=== PATIENT | male | born 1970 | race Caucasian/White ===

== ENCOUNTER 2021-04-10 18:00 | Emergency (ER) | payer OTHER, SELFPAY ==
[2021-04-10 18:30] VITALS: BP 133/81; PULSE 65; RESP 15; TEMP 36.5; O2SAT 94; BMI 38.7
[2021-04-10] MEDS: predniSONE 20 mg Tablet PO (19:35)
--- NOTE | 2021-04-10 19:38 | PC.NURSE ---
Patient complaining of rib pain with deep inspiration. Dennis completed a full assessment, ordered prednison, administered per physicians orders. Patient discharged ambulatory in stable condition.
--- NOTE | 2021-04-10 20:16 | W.ED.GENADLT ---
HPI - General Adult General: Chief complaint: General Medical Stated complaint: rib, arm, back pain Time Seen by Provider: 04/10/21 19:16 History of Present Illness: HPI narrative: Patient states he has pain left rib cage radiates more from the left side of his back with movement while at work today. This also occurred yesterday. Only hurts when he moves he says it feels like a sharp pain she is he puts his arm down it goes away. MD complaint: Musculoskeletal pain Onset (ago): day(s) Location: chest Radiation: non-radiation Severity: mild Quality: sharp Pain Consistency: colicky Relieving factors: immobilization Exacerbating factors: movement Associated symptoms: Reports no associated symptoms; Deny chest pain, dyspnea, headache(s), nausea, rash or vomiting Treatments prior to arrival: none Review of Systems Const: Denies: fever(s), chills or body aches Eyes: Denies: change in vision or blurry vision ENMT: Denies: throat pain or nasal congestion Card: Denies: chest pain or dyspnea on exertion Resp: Denies: dyspnea, productive cough or non-productive cough GI: Denies: abdominal pain, nausea or vomiting : Denies: difficulty urinating Musc: Reports: back pain (Radiates to the left side chest with movement of left arm); Denies: extremity pain Skin/Breast: Denies: rash Neuro: Denies: headache(s) Psych: Denies: anxiety or depression Kp/Lymph: Denies: easy bruising PFSH ED PFSH: Family History (Updated 11/09/19 @ 13:37 by Nandini Cisse RN) Other Cancer Diabetes Social History (Updated 04/10/21 @ 18:35 by Aman Mathews RN) Smoking and tobacco status: never smoked Alcohol intake: never Substance/Drug Use: never Physical Exam Const: COMMON NORMALS: no acute distress, average body habitus and patient oriented x3 HENMT: COMMON NORMALS: normocephalic HEAD & SCALP: normal to inspection and normocephalic FACE & SINUS: normal facial exam Eye: COMMON NORMALS: conjunctivae normal GENERAL EYE: appearance normal, both eyes and all related structures CONJUNCTIVA: Yes conjunctivae normal Neck/C-Spine: COMMON NORMALS: no JVD Chest: COMMONS NORMALS: normal inspection of the chest Resp: COMMON NORMALS: normal respiratory effort and clear to auscultation bilaterally AUSCULTATION: clear to auscultation bilaterally Cardio: COMMON NORMALS: no JVD, regular rate and regular rhythm RATE: regular rate RHYTHM: regular rhythm GI: COMMON NORMALS: Normal to inspection, nondistended, normoactive bowel sounds present Extremity: COMMON NORMALS: normal to inspection and full ROM Neuro: COMMON NORMALS: patient oriented x3 Course Vital Signs: Vital signs: Vital Signs Temperature 97.7 F 04/10/21 18:30 Pulse Rate 65 04/10/21 18:30 Respiratory Rate 15 04/10/21 18:30 Blood Pressure 133/81 04/10/21 18:30 Pulse Oximetry 94 04/10/21 18:30 MDM - General Adult MDM Narrative: Medical decision making narrative: Patient's arm is not hurting. I cannot reduce pain with the range of motion. Patient had no pain since he has been here. He said his only occurs at work when he is moved his left arm and happened just a few times. Says he has a lot of anxiety going on his life what happened but his mother in the detention. Denies any shortness breasts chest pressure heaviness or other related type of cardiac symptoms. Discharge Plan Discharge Patient Disposition: Home Clinical Impression: Rib pain on left side Condition: Stable Prescriptions: New prednisone 20 mg tablet 20 mg PO DAILY Qty: 7 RF: 0 No Action metoprolol succinate 25 mg tablet extended release 24 hr 25 mg PO DAILY Qty: 30 RF: 0 Discharge Orders: Discharge ED (Routine); Ordered 04/10/21 Ordered By: Dennis Olivas Referrals: Manuel Montero MD [Primary Care Provider] - Discharge Diet: Usual diet Discharge Activity: Increase activity as tolerated Activity Restrictions/Additional Instructions: Keep appointments as scheduled. Follow-up your family medical provider here in a week or 2 to make sure medication has been helping. Seek out chiropractic adjustment if you think that will help. Continue taking ktps-eyb-jpateyo medications as needed. Can apply ice to upper thoracic spine alternating with moist heat to see if that helps out. Coding Level of Care Code ED Flat Folding Machine Operator for Addis Fwd Exam Comprehensive
== END 2021-04-10 19:39 | disposition home or self-care (01) ==
PROVIDERS: Emergency Provider Nurse Practitioner Family; PCP Family Medicine
DX: R07.81 Pleurodynia (principal)
CPT/HCPCS: 99282; J7512

== ENCOUNTER 2022-03-17 06:44 | Emergency (ER) | payer OTHER, SELFPAY ==
[2022-03-17 06:56] VITALS: BP 137/90; PULSE 55; RESP 18; TEMP 36.7; O2SAT 96; BMI 41.5
--- NOTE | 2022-03-17 07:11 | ECG_ITS ---
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 Measurements Intervals [place] Rate: 59 P: 41 DE: 163 QRS: 15 QRSD: 87 T: 30 QT: 394 QTc: 393 Interpretive Statements SINUS BRADYCARDIA No previous ECG available for comparison Electronically Signed On 03-17-2022 17:37:34 CDT by Kamla Escalera M.D. [id number]
--- NOTE | 2022-03-17 07:11 | XRR_ITS ---
PROCEDURE INFORMATION: Exam: XR Chest Exam date and time: 03/17/2022 7:24 AM Age: 51 years old Clinical indication: Angina. Chest pain off and on for 2 days. Dyspnea. TECHNIQUE: Imaging protocol: XR of the chest. Views: 1 view. COMPARISON: CR XR chest 2V* [id number] 10/18/2021 10:58 AM FINDINGS: Lungs: No pulmonary consolidation. Pleural spaces: No pleural effusion. No pneumothorax. Heart/Mediastinum: The cardiac silhouette is unchanged. No gross evidence of pneumomediastinum. Diaphragm: Mild elevation of the right hemidiaphragm. Bones/joints: No gross fracture. XR/XR chest 1V portable [id number] IMPRESSION: No acute cardiopulmonary abnormality identified.
--- NOTE | 2022-03-17 07:14 | ED_ITS ---
HPI - Chest Pain General: Chief Complaint: Chest Pain Stated Complaint: Chest Pains Time Seen by Provider: 03/17/22 06:49 Source: patient Mode of arrival: ambulatory Limitations: no limitations History of Present Illness: 51-year-old male who presents emergency room with complaints of left-sided chest discomfort. He Stempler dentally had this for nearly 3 years,difficult for him to give us an exact timeframe but he says he seen Dr. Chong for it and there is a note from May 02, 2021 at that time and patient had already had a stress test the date on that was May 20, 2018. He states he will get brief episodes of chest pain the last 2 to 10 seconds be very sharp or sometimes goes into his back. Pain is better if he pushes on the anterior chest wall. Previous stress test from 2017 showed artifact but no evidence of significant ischemia. Patient states he will get this at various times sometimes at rest today he got while he was on the toilet at home. MD complaint: chest pain Onset (ago): year(s) (~3) Timing of current episode: episodic Prior episodes: Yes Onset: during rest Pain location: left chest Pain radiation: back Severity: mild Quality: sharp Relieving factors: other (Palpation) Exacerbating factors: nothing Associated symptoms: Deny abdominal pain, diaphoresis, dyspnea, fever(s), leg edema, nausea, palpitations, sense of impending doom, syncope or vomiting Treatment prior to arrival: none Review of Systems Const: Denies: fever(s), chills, body aches, change in appetite or diaphoresis ENMT: Denies: throat pain, ear or mastoid pain, nasal discharge or nasal congestion Card: Reports: chest pain; Denies: palpitations, irregular heart rhythm, edema or syncope Resp: Denies: dyspnea, productive cough, non-productive cough or wheezing GI: Denies: abdominal pain, nausea or vomiting : Denies: flank pain, difficulty urinating, dysuria, urinary frequency or urinary urgency Musc: Reports: back pain (Associated with chest discomfort); Denies: neck pain Skin/Breast: Denies: rash or pruritus [facility] ED PFSH: Medical History Chest pain Palpitations Family History Other Cancer Diabetes Social History Alcohol intake: never Physical Exam Const: COMMON NORMALS: no acute distress GENERAL APPEARANCE: cooperative and comfortable ORIENTATION/CONSCIOUSNESS: Yes awake, Yes oriented to person, Yes oriented to place and Yes oriented to time HENMT: COMMON NORMALS: normocephalic and atraumatic HEAD & SCALP: normocephalic and atraumatic Neck/C-Spine: COMMON NORMALS: no JVD Resp: COMMON NORMALS: normal respiratory effort, No retractions, No use of accessory muscles and clear to auscultation bilaterally AUSCULTATION: clear to auscultation bilaterally Cardio: COMMON NORMALS: no JVD, regular rate, regular rhythm and No murmurs present (Cardio) RATE: regular rate RHYTHM: regular rhythm GI: COMMON NORMALS: Soft to palpation and No hepatosplenomegaly present AUSCULTATION: Yes normoactive bowel sounds PALPATION: Yes Soft to palpation, No Tenderness to palpation present (GI), No Guarding due to palpation present (GI) and Yes No hepatosplenomegaly present Extremity: COMMON NORMALS: normal to inspection, capillary refill normal, no clubbing, cyanosis or edema, no calf tenderness and no pedal edema Neuro: SENSORIUM/ORIENTATION: Yes oriented to person, Yes oriented to place and Yes oriented to time Skin: COMMON NORMALS: no rashes or lesions noted GENERAL SKIN EXAM: no rashes or lesions noted Course Vital Signs: Vital signs: Vital Signs Temperature 98.0 F 03/17/22 06:56 Pulse Rate 52 L 03/17/22 11:47 Respiratory Rate 13 03/17/22 09:11 Blood Pressure 145/59 03/17/22 11:47 Pulse Oximetry 95 03/17/22 11:47 MDM - Chest Pain Medical Decision Making Serial enzymes negative. EKG does not show any acute changes. Will discharge patient home set up for outpatient stress testing follow-up as needed. Medical Records I reviewed the patient's medical records. Lab Data I reviewed the patient's lab results. : 03/17/22 07:34 03/17/22 07:34 Radiology Impressions Chest X-Ray 03/17/22 07:11 IMPRESSION: No acute cardiopulmonary abnormality identified. Laboratory Results WBC 9.6 10^3/uL (4.0-10.0) 03/17/22 07:34 RBC 5.10 10^6/uL (4.1-5.3) 03/17/22 07:34 Hgb 16.7 g/dL (11.7-16.6) H 03/17/22 07:34 Hct 47.7 % (42.0-52.0) 03/17/22 07:34 MCV 93.5 fl (80-94) 03/17/22 07:34 MCH 32.7 pg (28.0-34.0) 03/17/22 07:34 MCHC 35.0 g/dL (30.0-36.0) 03/17/22 07:34 RDW 12.6 % (12.1-15.1) 03/17/22 07:34 Plt Count 259 10^3/cmm (130-400) 03/17/22 07:34 MPV 9.6 fL (7.4-10.4) 03/17/22 07:34 Neut % (Auto) 55.8 % 03/17/22 07:34 Lymph % (Auto) 32.6 % 03/17/22 07:34 [place] % (Auto) 8.6 % 03/17/22 07:34 Eos % (Auto) 1.6 % 03/17/22 07:34 Baso % (Auto) 0.8 % 03/17/22 07:34 Neut # (Auto) 5.35 10^3/uL (1.8-7.7) 03/17/22 07:34 Lymph # (Auto) 3.1 10^3/uL (0.8-4.8) 03/17/22 07:34 [place] # (Auto) 0.8 10^3/uL (0.2-0.9) 03/17/22 07:34 Eos # (Auto) 0.2 10^3/uL (0.0-0.8) 03/17/22 07:34 Baso # (Auto) 0.1 10^3/uL (0.0-0.1) 03/17/22 07:34 Nucleated RBC % (auto) 0 % 03/17/22 07:34 Nucleated RBCs # 0.0 /100WBC 03/17/22 07:34 Sodium 140 mmol/L (136-145) 03/17/22 07:34 Potassium 3.7 mmol/L (3.5-5.1) 03/17/22 07:34 Chloride 105 mmol/L (98-107) 03/17/22 07:34 Carbon Dioxide 22 mmol/L (22-29) 03/17/22 07:34 Anion Gap 16.7 (5-19) 03/17/22 07:34 BUN 16 mg/dL (6-20) 03/17/22 07:34 Creatinine 0.9 mg/dL (0.7-1.2) 03/17/22 07:34 GFR Calculation 89.7 mL/min (90-130) L 03/17/22 07:34 Glucose 98 mg/dL (65-115) 03/17/22 07:34 Calculated Osmolality 291 mOsm/kg (285-295) 03/17/22 07:34 Calcium 9.1 mg/dL (8.5-10.5) 03/17/22 07:34 Total Bilirubin 0.4 mg/dL (0.15-1.2) 03/17/22 07:34 AST 20 U/L (0-40) 03/17/22 07:34 ALT 38 U/L (0-41) 03/17/22 07:34 Alkaline Phosphatase 64 IU/L (40-130) 03/17/22 07:34 Troponin T Baseline 7 ng/L (0-15) 03/17/22 07:34 Troponin T 120 Minute 7.75 ng/L (0-15) 03/17/22 09:36 Delta Troponin T Not Reportable 03/17/22 09:36 Total Protein 7.1 g/dL (6.6-8.7) 03/17/22 07:34 Albumin 4.2 g/dL (3.5-5.2) 03/17/22 07:34 Globulin 2.9 g/dL (1.3-4.6) 03/17/22 07:34 Discharge Plan Discharge Patient Disposition: Home Clinical Impression: Atypical chest pain Condition: Stable Prescriptions: No Action magnesium oxide 400 mg magnesium capsule 400 mg PO DAILY PRN (Reason: muscle cramps) 0RF Otc Sinus Tab From [facility] 1 tab PO DAILY 0RF metoprolol succinate 25 mg tablet extended release 24 hr 25 mg PO QAM 0RF albuterol sulfate 90 mcg/actuation HFA aerosol inhaler 2 puff INHALATION QID PRN (Reason: Shortness Of Breath) 0RF Discharge Orders: Discharge ED (Routine); Ordered 03/17/22 Ordered By: Mathew Quinn Referrals: Manuel Montero MD [Primary Care Provider] - Discharge Diet: Usual diet Patient Instructions: Opioid Safety Activity Restrictions/Additional Instructions: Case management will call to set up a Lexiscan sestamibi stress test. Coding Level of Care Code ED Solaris Administrator for Chg Fwd Exam Comprehensive
[2022-03-17 07:36] VITALS: BP 137/90; PULSE 55; RESP 16; O2SAT 96
[2022-03-17 07:46] LABS: Basophils # 0.1 10^3/uL (0.0-0.1); Basophils % 0.8 %; Eosinophils # 0.2 10^3/uL (0.0-0.8); Eosinophils % 1.6 %; Hematocrit 47.7 % (42.0-52.0); Hemoglobin 16.7 g/dL (11.7-16.6); Lymphocytes # 3.1 10^3/uL (0.8-4.8); Lymphocytes % 32.6 %; Mean Corpuscular Hemoglobin 32.7 pg (28.0-34.0); Mean Corpuscular Volume 93.5 fl (80-94); Mean Platelet Volume 9.6 fL (7.4-10.4); Monocytes # 0.8 10^3/uL (0.2-0.9); Monocytes % 8.6 %; Neutrophils # 5.35 10^3/uL (1.8-7.7); Neutrophils % 55.8 %; Nucleated Red Blood Cells % 0 %; Platelet Count 259 10^3/cmm (130-400); Red Cell Distribution Width 12.6 % (12.1-15.1); White Blood Count 9.6 10^3/uL (4.0-10.0)
[2022-03-17 08:05] LABS: Troponin(5th) Baseline 7 ng/L (0-15)
[2022-03-17 08:07] LABS: Alanine Aminotransferase 38 U/L (0-41); Albumin Level 4.2 g/dL (3.5-5.2); Alkaline Phosphatase 64 IU/L (40-130); Anion Gap 16.7 (5-19); Aspartate Amino Transferase 20 U/L (0-40); Blood Urea Nitrogen 16 mg/dL (6-20); Calcium 9.1 mg/dL (8.5-10.5); Carbon Dioxide 22 mmol/L (22-29); Chloride 105 mmol/L (98-107); Globulin 2.9 g/dL (1.3-4.6); Glomerular Filtration Rate 89.7 mL/min (90-130); Glucose 98 mg/dL (65-115); Osmolality Calculated 291 mOsm/kg (285-295); Potassium 3.7 mmol/L (3.5-5.1); Sodium 140 mmol/L (136-145); Total Bilirubin 0.4 mg/dL (0.15-1.2); Total Protein 7.1 g/dL (6.6-8.7)
[2022-03-17 09:11] VITALS: BP 145/59; PULSE 52; RESP 13; O2SAT 92
--- NOTE | 2022-03-17 09:11 | ECG_ITS ---
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 Measurements Intervals [place] Rate: 47 P: 37 OR: 148 QRS: 25 QRSD: 91 T: 35 QT: 430 QTc: 383 Interpretive Statements SINUS BRADYCARDIA Compared to ECG 03/17/2022 06:52:14 No significant changes Electronically Signed On 03-17-2022 17:41:31 CDT by Kamla Escalera M.D. [id number]
[2022-03-17 09:33] VITALS: BP 145/59; PULSE 52; O2SAT 95
[2022-03-17 10:28] LABS: Troponin 5 2HR 7.75 ng/L (0-15)
[2022-03-17 11:47] VITALS: BP 145/59; PULSE 52; O2SAT 95
--- NOTE | 2022-03-24 13:50 | DCPLANNER ---
Addendum entered by Jaquelin Holder 07/18/22 14:10: Patient had a stress test scheduled - patient did attend appointment. Original Note: quality systems manager had message to schedule an outpatient stress test for patient. quality systems manager faxed signed order to centralized scheduling, who will call patient with appointment information.
== END 2022-03-17 11:49 | disposition home or self-care (01) ==
PROVIDERS: Emergency Provider Family Medicine; PCP Family Medicine
DX: R07.89 Other chest pain (principal)
CPT/HCPCS: 71045; 80053; 84484; 85025; 93005; 99284

== ENCOUNTER 2022-05-16 11:41 | Outpatient (CLI) | payer OTHER, SELFPAY ==
[2022-05-16 12:22] VITALS: BMI 44.1
--- NOTE | 2022-05-16 12:35 | ECG_ITS ---
[facility] Test Date: 2022-05-16 Pat Name: Brigido Johns Department: Room: Gender: Male Respite Care Provider: Jill Casas : 1970 Requested By: Mathew Baldwin Order Number: [id number] Ayala MD: Luis Santos M.D. Interpretive Statements NAME OF STUDY: TREADMILL STRESS TEST INDICATION: [Atypical Chest Pain, ] EXERCISE DATA: The patient was exercised by Tin protocol. Baseline heart rate was 69 beats per minute. Baseline blood pressure was 143/104 millimeters of mercury. Target heart rate was 144 beats per minute. Maximum heart rate achieved was 169, which was 117% of the target heart rate. Maximum blood pressure was 190/99 millimeters of mercury. Total exercise time was 6 minutes 42 seconds. Maximum METs achieved was 10.2. The reason for ending the test was completion of protocol. The patient complained of chest pain during the stress test, which then resolved at the end of the test. ELECTROCARDIOGRAM: BASELINE: Showed sinus rhythm, normal axis, no significant ST-T changes at the baseline noted. [] EXERCISE: At the peak exercise level, [] No significant ST-T changes suggestive of ischemia noted. [] RECOVERY: During the recovery period, heart rate dropped appropriately. No significant ST-T changes in the recovery suggestive of ischemia noted. [] CONCLUSION: 1. Exercise capacity good 2. Heart rate response was appropriate 3. Blood pressure response was appropriate 4. Symptoms not suggestive of ischemia. 5. Electrocardiogram portion of the stress test was not suggestive of ischemia. Electronically Signed On 05-24-2022 13:06:44 CDT by Luis Santos M.D. [id number]
[2022-05-16 12:57] VITALS: BP 127/74; PULSE 95
== END 2022-05-16 11:42 | disposition home or self-care (01) ==
PROVIDERS: PCP Family Medicine; Visit Provider Family Medicine
DX: R07.89 Other chest pain (principal); R06.02 Shortness of breath
CPT/HCPCS: 93017

== ENCOUNTER 2023-03-10 05:37 | Day surgery (SDC) | payer OTHER, SELFPAY ==
[2023-03-09 08:32] VITALS: BMI 42.8
[2023-03-10] VITALS (8 sets, daily range): BP systolic 115–162; BP diastolic 66–94; PULSE 62–88; RESP 15–20; TEMP 36.2–36.5; O2SAT 90–94
--- NOTE | 2023-03-10 | XR_ITS ---
WS: [id number] C-arm fluoroscopy views of the left third and fourth fingers, 03/10/2023 Clinical Data: foreign body removal Comparison: None. Findings: Dr. Nicolas removed a foreign body. XR/XR finger LT min 2V [id number] Impression: Views of the left third and fourth fingers.
[2023-03-10] MEDS: sodium chloride 0.9% 1,000 ML 30 ML IV (06:13)
[2023-03-10] MEDS: ketorolac 30 mg/mL INJ IVP (06:13)
[2023-03-10] MEDS: acetaminophen 1,000 MG/100 ML PIGGYBACK 400 MG IV (06:14)
--- NOTE | 2023-03-10 07:00 | W.PM.OPSUD ---
Surgery/Procedure H&P Update DATE OF PROCEDURE: March 10, 2023 DATE H&P PERFORMED: 02/13/23 CHANGES TO PREVIOUS DOCUMENTATION: None PREOP DIAGNOSIS: Left middle finger foreign body PRIMARY INDICATION FOR PROCEDURE: Left middle finger foreign body PLANNED PROCEDURE: Operation Date: 03/10/23 07:00 Proposed Procedures p foreign body removal of left hand ? 20215, S60.552A(Left) - Lucian Urbina,
[2023-03-10] MEDS: ceFAZolin 2,000 MG in sodium chloride 0.9% (plus) 50 ML 100 MG IV (07:08)
--- NOTE | 2023-03-10 07:37 | ANES.PREANE2 ---
Pre-Anesthetic Assessment Height/Weight: Height 1.75 m Weight 131.542 kg Temp Pulse Resp BP Pulse Ox O2 Del Method 97.7 F 62 16 136/94 94 Room Air 03/10/23 06:10 03/10/23 06:10 03/10/23 06:10 03/10/23 06:10 03/10/23 06:10 03/10/23 06:10 Preop Diagnosis: Left middle finger foreign body Operation Date: 03/10/23 07:00 Proposed Procedures p foreign body removal of left hand ? 64746, S60.552A(Left) - Lucian Urbina DO Familial anesthetic complications: none Was Beta Gabriel taken within 24 hours: Yes Was Clonidine taken within 24 hours: N/A Last intake: Intake Last Liquid Date 03/09/23 Last Liquid Time 21:00 Last Solid Date 03/09/23 Last Solid Time 19:00 Social No alcohol and No tobacco Exam alert, oriented x 3, clear to auscultation bilaterally and regular rate & rhythm Airway Submandibular: within normal limits Cervical ROM: within normal limits Mallampati: Class II Dentition: chipped Pulmonary Asthma CV/HEM Arrythmia and Hypertension Anesthetic Plan ASA status: 2 Anesthesia: Choice Medications/Allergies Home Medications Medication Instructions Recorded Confirmed Last Taken Type magnesium oxide 400 mg PO DAILY PRN muscle cramps 05/02/21 03/09/23 Unknown History albuterol sulfate 90 mcg/actuation 2 puff inhalation QID PRN 03/17/22 03/09/23 Unknown History aerosol inhaler Shortness Of Breath metoprolol succinate 25 mg 25 mg PO QAM #90 tabs 01/09/23 03/09/23 03/09/23 Rx tablet,extended release 24 hr Allergies Allergy/AdvReac Type Severity Reaction Status Date / Time No Known Allergies Allergy Verified 03/09/23 08:30 Current Medications Generic Name Dose Route Start Last Admin Trade Name Freq PRN Reason Stop Dose Admin Sodium Chloride 1,000 mls @ 30 mls/hr 03/10/23 06:00 03/10/23 06:13 Sodium Chloride 0.9% IV 03/11/23 05:59 30 mls/hr .Q24H AVA Administration PFSH Anesthesia Medical History Chest pain Palpitations Family History Other Cancer Diabetes Social History Smoking and tobacco status: current every day smoker (Chewing) Alcohol intake: never Substance/Drug Use: never Data Anesthesia Cardiac Studies: No Data to Display
[2023-03-10] MEDS: lidocaine-epi 1% 20 mL INJ 6 ML INJECTION (07:40)
--- NOTE | 2023-03-10 07:48 | PM.OP2 ---
Brief Operative Note Date of procedure: 03/10/23 Pre-op diagnosis: Left middle finger foreign body Post-op diagnosis: same Procedure Done: Left middle finger foreign body excision Surgeon: Lucian Urbina Estimated blood loss (mL): 2 Complications: None Post-op Plan: patient taken to PACU in stable condition recovering well. Patient will receive appropriate discharge instructions, as well as recommend [id number] Tylenol and Motrin for pain medication. Patient will follow-up in the orthopedic office in 2 weeks for incision check and suture removal. Patient understands agrees with current plan. All questions answered. Condition: stable Disposition: same day Coding Level of Care Code Acute Code for Nanetteg Fwearlene
--- NOTE | 2023-03-10 07:56 | PC.NURSE ---
Arived awake and oriented.
--- NOTE | 2023-03-10 08:04 | PM.PACU ---
PACU note Narrative: Patient taken to PACU in stable condition recovering well dressing on in place clean dry and intact fingertips warm well-perfused brisk capillary refill less than 2 seconds. Decree sensation of the left middle finger secondary to local digital block. Exam: awake Disposition: discharged
--- NOTE | 2023-03-10 08:05 | PM.OP ---
Operative Report Date of procedure: March 10, 2023 Pre-op diagnosis: Preop Diagnosis Left middle finger foreign body Post-op diagnosis: Same Procedure done: left middle finger foreign body removal Specimens removed/disposition: Small metal bonding crib attendant piece removed and disposed Surgeon: Lucian Urbina DO Anesthesia: MAC (Local) Estimated blood loss: 2mL 7 minutes IV fluids: 500 mL Complications: none Findings: See operative report narrative Condition: stable Disposition: same day Brief History: Brigido is a pleasant 52-year-old male who sustained an injury to his left middle finger. He was working with a tap grinder and this piece had broken off and performed a laceration on the PIP of his left middle finger this is healed well but is worked up in the outpatient setting no signs of infection at this point he had completed his antibiotics but he did have a foreign body that was evident on x-ray. This did appear to have the appearance of bone however in relationship to this being so subcutaneous did not make much in the way since. At this point time this was palpable and tender to palpation he like to have this removed. Through shared decision making he agreed to proceed with a left middle finger foreign body removal. He understands the risk benefits complication alternatives of surgery and agrees to proceed with surgical intervention. All questions answered Procedure: Patient seen evaluated in the preoperative holding area. Consent was reviewed and signed with patient. Correct extremity was marked. All questions were answered at this time plan to proceed with left middle finger foreign body removal. Patient seen evaluated by anesthesia once cleared for surgery patient was taken back to the operative suite. Patient was transported onto the OR table in supine position all bony prominences well-padded patient was appropriate secured to the bed. Armboard was then applied to the left arm. Patient then subsequently underwent anesthesia per the anesthesia department. Once appropriately anesthetized, nonsterile tourniquet applied to the left arm. Left upper extremity was then prepped and draped in standard orthopedic fashion. Final timeout performed. Patient received appropriate preoperative antibiotics. Finger turnicot was placed to the left middle finger Patient's previous laceration was identified that it healed as well as prominence over the left middle finger dorsally at the level of the PIP joint. I incorporated the previous laceration and extended both proximally and distally for removal of foreign body. Sharp scalpel incision was made through skin. I then created full-thickness skin flaps and immediately once developing skin flaps I encountered a piece of metal bonding crib attendant above the tendon. This had metallosis around the soft tissue envelope. This metal piece was subsequently removed. I then inspected the tendon and there was no harm to the extensor mechanism as well as no harm into the joint. At this point I utilized sharp scalpel excision as well as dissection scissors to excise all metallosis in the subcutaneous tissue and skin. This debridement and irrigation was performed to its entirety to a clean stable wound bed. Turnicot was removed hemostasis satisfactory with bipolar electrocautery. I then thoroughly irrigated the wound bed. Incision was then closed with skin with simple interrupted nylon sutures. Then the dressed the incision with Xeroform 4 x 4's Curlex and an Kanu wrap. Patient was then awake from anesthesia and taken to PACU in stable condition. Disposition: Patient taken to PACU in stable condition recovering well. Will receive appropriate discharge instruction as well as pain medication postoperatively. Plan will be to follow-up in the orthopedic office in 2 weeks. Patient may be weightbearing as tolerated to the left hand. Patient understands agrees with current plan. All questions answered.
--- NOTE | 2023-03-10 14:45 | ANE.PACU2 ---
Inpatient post-anesthesia follow up: Airway intact: Yes Vital signs: Temperature 97.2 F Pulse Rate 68 Respiratory Rate 16 Blood Pressure 120/74 Pulse Oximetry 93 Oxygen Delivery Me thod Room Air Oxygen Flow Rate Fraction of Inspir ed Oxygen Hydration adequate: Yes Nausea and vomiting: No Pain level: 1 Mental status: Baseline
== END 2023-03-10 08:40 | disposition home or self-care (01) ==
PROVIDERS: PCP Family Medicine; Visit Provider Student in an Organized Health Care Education/Training Program
PROC: (CPT 20103; principal; 2023-03-10 07:00)
DX: S61.223A Laceration with foreign body of left middle finger without damage to nail, initial encounter (principal); W29.8XXA Contact with other powered hand tools and household machinery, initial encounter; F17.290 Nicotine dependence, other tobacco product, uncomplicated; I49.9 Cardiac arrhythmia, unspecified; I10 Essential (primary) hypertension
CPT/HCPCS: 20103; 73140; 76000; J0131; J0690; J1885; J2250; J2704; J3010; J3490; J7030